=== PATIENT | male | born 1965 | race Hispanic/Latino ===

== ENCOUNTER 2018-12-23 13:43 | Emergency (ER) | payer SELFPAY ==
[2018-12-23] MEDS ORDERED: ASPIRIN PO ONE (14:06)
[2018-12-23 14:22] LABS: Basophils % (Auto) 0.8 % (0.0-1.8); Eosinophils # (Auto) 0.1 K/mm3 (0.0-0.4); Eosinophils % (Auto) 2.9 % (0.0-4.3); Hematocrit 41.2 % (35.5-45.6); Hemoglobin 14.3 gm/dl (11.8-15.2); Lymphocytes # (Auto) 1.3 K/mm3 (1.2-5.4); Lymphocytes % (Auto) 24.7 % (13.4-35.0); Mean Corpuscular HGB Conc 35 % (32-34); Mean Corpuscular Volume 98 fl (84-94); Monocytes # (Auto) 0.5 K/mm3 (0.0-0.8); Monocytes % (Auto) 9.6 % (0.0-7.3); Red Blood Count 4.22 M/mm3 (3.65-5.03); Red Cell Distribution Width 14.1 % (13.2-15.2)
[2018-12-23 14:27] LABS: Platelet Count 95 K/mm3 (140-440)
[2018-12-23 14:34] LABS: BUN/Creatinine Ratio 15; Blood Urea Nitrogen 12 mg/dL (9-20); Calcium 8.7 mg/dL (8.4-10.2); Hemolysis Index 218; INR 1.1 (0.87-1.13)
[2018-12-23 14:35] LABS: Partial Thromboplastin Time 25.8 Sec. (24.2-36.6)
--- NOTE | 2018-12-23 14:49 | XRay Report ---
AP CHEST: HISTORY: chest pain AP view of the chest demonstrates a normal mediastinal and cardiac contour with clear lungs and normal bony and soft tissue structures. IMPRESSION: Unremarkable AP chest.
--- NOTE | 2018-12-23 15:04 | Emergency Department Report ---
HPI - General Chief Complaint: Chest Pain Time Seen by Provider: 12/23/18 14:48 - HPI HPI: Room 26 The patient is a 53-year-old male presenting with chief complaint chest pain. The patient states when he awakened this morning he has discomfort in his chest. Patient describes a chest pain as pressure like and intermittent in nature. Patient states she is uncertain if he became short of breath with the pain but admits to nausea and vomiting. Patient also admits to methamphetamine use. The patient was brought in police custody and was tazed after running from police. Patient also complains of neck pain after arrest Location: [See above] Duration: [See above] Quality: [See above] Severity: [See above] Modifying factors: [see above] Context: [see above] Mode of transportation: [not driving] ED Past Medical Hx - Past Medical History Previous Medical History?: No Hx Heart Attack/AMI: Yes Additional medical history: Coronary artery disease - Surgical History Past Surgical History?: No - Family History Family history: no significant - Social History Smoking Status: Current Every Day Smoker Substance Use Type: Alcohol (occasional), Methamphetamines, Other - Medications Home Medications: Home Medications Medication Instructions Recorded Confirmed Last Taken Type No Known Home Medications [No 12/23/18 12/23/18 Unknown History Reported Home Medications] ED Review of Systems ROS: Stated complaint: AMS Other details as noted in HPI Constitutional: no symptoms reported Eyes: denies: eye pain ENT: denies: throat pain Respiratory: no symptoms reported Cardiovascular: chest pain Endocrine: no symptoms reported Gastrointestinal: nausea, vomiting Genitourinary: denies: dysuria Musculoskeletal: arthralgia (neck pain) Neurological: denies: headache Physical Exam - Physical Exam Vital Signs: Vital Signs 12/23/18 12/23/18 14:05 14:45 Temperature 97.9 F Pulse Rate 92 H 84 Respiratory 20 18 Rate Blood Pressure 142/76 120/82 [Right] O2 Sat by Pulse 99 98 Oximetry Physical Exam: GENERAL: The patient is well-developed male lying on stretcher is in poor hygiene not appearing to be in acute distress HEENT: Normocephalic. Atraumatic. Extraocular motions are intact. Patient has moist mucous membranes. NECK: Supple. Trachea midline CHEST/LUNGS: Clear to auscultation. There is no respiratory distress noted. HEART/CARDIOVASCULAR: Regular. There is no tachycardia. There is no gallop rub or murmur. ABDOMEN: Abdomen is soft, but diffusely tender to palpation. Patient has normal bowel sounds. There is no abdominal distention. SKIN: There are multiple superficial abrasions over the extremities. There is no edema. There is no diaphoresis. NEURO: The patient is asleep but awakens and answers questions appropriately. The patient is cooperative. The patient has no focal neurologic deficits. The patient has normal speech MUSCULOSKELETAL: There is no limitation range of motion. ED Course Vital Signs 12/23/18 12/23/18 14:05 14:45 Temperature 97.9 F Pulse Rate 92 H 84 Respiratory 20 18 Rate Blood Pressure 142/76 120/82 [Right] O2 Sat by Pulse 99 98 Oximetry ED Medical Decision Making - Lab Data Result diagrams: 12/23/18 14:12 12/23/18 14:12 - EKG Data -: EKG Interpreted by Me EKG shows normal: sinus rhythm Rate: normal - EKG Data When compared to previous EKG there are: previous EKG unavailable Interpretation: other (no ischemic changes seen) - Radiology Data Radiology results: report reviewed (chest x-ray, CT cervical spine, CT abdomen and pelvis), image reviewed (chest x-ray, CT cervical spine, CT abdomen and pelvis) interpreted by me: Chest x-ray-no focal infiltrates, no pneumothorax [facility] [address] [place] [address] XRay Report Signed Patient: REINALDO HATHAWAY MR#: [id number] : 1965 Acct:[id number] Age/Sex: 53 / M ADM Date: 12/23/18 Loc: ED Attending Dr: Ordering Physician: MATTI DUQUE MD Date of Service: 12/23/18 Procedure(s): XR chest 1V ap Accession Number(s): [id number] cc: MATTI DUQUE MD Fluoro Time In Minutes: AP CHEST: HISTORY: chest pain AP view of the chest demonstrates a normal mediastinal and cardiac contour with clear lungs and normal bony and soft tissue structures. IMPRESSION: Unremarkable AP chest. Transcribed By: TTR Dictated By: MAUDE WARD JR, MD Electronically A uthenticated By: MAUDE WARD JR, MD Signed Date/Time: 12/23/18 4184 DD/ 1444 TD/TT: 12/23/[address] [address] Cat Scan Report Signed Patient: REINALDO HATHAWAY MR#: [id number] : 1965 Acct:[id number] Age/Sex: 53 / M ADM Date: 12/23/18 Loc: ED Attending Dr: Ordering Physician: MATTI DUQUE MD Date of Service: 12/23/18 Procedure(s): CT cervical spine wo con Accession Number(s): [id number] cc: MATTI DUQUE MD PROCEDURE: CT CERVICAL SPINE WO CON TECHNIQUE: Computerized tomography of the cervical spine was performed from the skull base to T1 without contrast material. CT DOSE LENGTH PRODUCT: 765.8 mGycm HISTORY: diffuse tenderness after being taken into custody COMPARISONS: None . FINDINGS: Unenhanced CT of the cervical spine was performed and data was reformatted in the sagittal and coronal planes. These images demonstrate no fracture or malalignment of the cerv ical spine. The prevertebral soft tissues are within normal limits. There are degenerative changes at the C1-C2 articulation. There is right-sided facet hypertrophy at C3-C4 resulting in moderate right foraminal narrowing and suspected mild impingement of the exiting right C3 nerve root. There is loss of intervertebral disc space height and endplate remodeling at C6-C7. The prevertebral soft tissues are within normal limits. There is atherosclerosis of the cervical arterial vasculature. IMPRESSION: No fracture is seen in the cervical spine This document is electronically signed by Clint Bolaños MD., Dec 23 2018 04:11:24 PM ET Transcribed By: MATY Dictated By: CLINT BOLAÑOS MD Electronically Authenticated By: CLINT BOLAÑOS MD Signed Date/Time: 12/23/18 1613 DD/ 1533 TD/TT: 12/23/[address] [address] Cat Scan Report Signed Patient: REINALDO HATHAWAY MR#: [id number] : 1965 Acct:[id number] Age/Sex: 53 / M ADM Date: 12/23/18 Loc: ED Attending Dr: Ordering Physician: MATTI DUQUE MD Date of Service: 12/23/18 Procedure(s): CT abdomen pelvis w con Accession Number(s): [id number] cc: MATTI DUQUE MD PROCEDURE: CT ABDOMEN PELVIS W CON TECHNIQUE: Computerized axial tomography of the abdomen and pelvis was performed after the IV injection of iodinated nonionic contrast. CT DOSE LENGTH PRODUCT: 2829.9 mGycm HISTORY: diffuse tenderness after being taken into custody COMPARISONS: None . FINDINGS: Contrast-enhanced CT of the abdomen and pelvis was performed following the intravenous administration of iodinated contrast. There is coronary artery calcification. The lung bases appear clear. The visualized lower ribs are intact. ABDOMEN: There is a nodular contour of the liver consistent with cirrhotic change. The spleen measures 14.0 x 5.6 cm and is therefore mildly large. There are gallstones. No evidence of cholecystitis is seen. There are splenic hilar varices consistent with portal hypertension. No focal pancreatic lesion is seen. The adrenal glands are within normal limits. There is a 0.4 cm left nonobstructing renal calculus. No ureteral calculus or hydronephrosis is identified. There is no hemoperitoneum. Pelvis: The appendix is not seen. There is no evidence of appendicitis. There is no evidence of diverticulitis. The prostate and urinary bladder are within normal limits. There is a small posterior disc bulge at L5-S1 which does not result in canal stenosis or nerve root impingement. No fracture is seen in the lumbar spine. The bony pelvis and hips appear intact IMPRESSION: ABDOMEN: Cirrhosis and splenomegaly Gallstones Pelvis: No evidence of diverticulitis This document is electronically signed by Clint Bolaños MD., Dec 23 2018 04:04:34 PM ET Transcribed By: MATY Dictated By: CLINT BOLAÑOS MD Electronically Authenticated By: CLINT BOLAÑOS MD Signed Date/Time: 12/23/18 1606 DD/ 0000 TD/TT: 12/23/18 0000 - Differential Diagnosis ACS, pericarditis, rhabdomyolysis, cervical strain, liver laceration Critical care attestation.: If time is entered above; I have spent that time in minutes in the direct care of this critically ill patient, excluding procedure time. ED Disposition Clinical Impression: Chest pain, Cervical strain Disposition: OP ADMIT IP TO THIS HOSP Is pt being admited?: Yes Does the pt Need Aspirin: Yes Condition: Fair Instructions: Chest Pain (ED) Referrals: WILMAN FREITAS MD [Primary Care Provider] - 3-5 Days Time of Disposition: 16:40 (Hospitalist notified (Dr Hicks))
--- NOTE | 2018-12-23 16:06 | Cat Scan Report ---
PROCEDURE: CT ABDOMEN PELVIS W CON TECHNIQUE: Computerized axial tomography of the abdomen and pelvis was performed after the IV inject ion of iodinated nonionic contrast. CT DOSE LENGTH PRODUCT: 2829.9 mGycm HISTORY: diffuse tenderness after being taken into custody COMPARISONS: None . FINDINGS: Contrast-enhanced CT of the abdomen and pelvis was performed following the intravenous admi nistration of iodinated contrast. There is coronary artery calcification. The lung bases appear clear. The visualized lower ribs are in tact. ABDOMEN: There is a nodular contour of the liver consistent with cirrhotic change. The spleen measures 14.0 x 5.6 cm and is therefore mildly large. There are gallstones. No evidence of cholecystitis is seen. There are splenic hilar varices consistent with portal hypertension. No focal pancreatic lesion is seen. The adrenal glands are within normal limits. There is a 0.4 cm left nonobstructing renal calculus. No ureteral calculus or hydronephrosis is ident ified. There is no hemoperitoneum. Pelvis: The appendix is not seen. There is no evidence of appendicitis. There is no evidence of diverticuliti s. The prostate and urinary bladder are within normal limits. There is a small posterior disc bulge at L5-S1 which does not result in canal stenosis or nerve root impingement. No fracture is seen in the lumbar spine. The bony pelvis and hips appear intact IMPRESSION: ABDOMEN: Cirrhosis and splenomegaly Gallstones Pelvis: No evidence of diverticulitis This document is electronically signed by Clint Bolaños MD., Dec 23 2018 04:04:34 PM ET
[2018-12-23 16:10] VITALS: BP 171/90
--- NOTE | 2018-12-23 16:13 | Cat Scan Report ---
PROCEDURE: CT CERVICAL SPINE WO CON TECHNIQUE: Computerized tomography of the cervical spine was performed from the skull base to T1 wit hout contrast material. CT DOSE LENGTH PRODUCT: 765.8 mGycm HISTORY: diffuse tenderness after being taken into custody COMPARISONS: None . FINDINGS: Unenhanced CT of the cervical spine was performed and data was reformatted in the sagittal and coronal planes. These images demonstrate no fracture or malalignment of the cervical spine. The prevertebral soft tis sues are within normal limits. There are degenerative changes at the C1-C2 articulation. There is right-sided facet hypertrophy at C 3-C4 resulting in moderate right foraminal narrowing and suspected mild impingement of the exiting ri ght C3 nerve root. There is loss of intervertebral disc space height and endplate remodeling at C6-C7. The prevertebral soft tissues are within normal limits. There is atherosclerosis of the cervical arterial vasculature. IMPRESSION: No fracture is seen in the cervical spine This document is electronically signed by Clint Bolaños MD., Dec 23 2018 04:11:24 PM ET
[2018-12-23] MEDS ORDERED: NITRO-BID 2% TP ONE (16:22)
--- NOTE | 2018-12-23 16:54 | Event Note ---
Date: 12/23/18 Chest pain after being Tased sleeping In no pain Dx musculo skeletal pain-Chest D/c to Detention
== END 2018-12-23 17:24 | disposition home or self-care (01) ==
LOC: EDBD 13:43 → ED 13:43
DX: S16.1XXA Strain of muscle, fascia and tendon at neck level, initial encounter (principal); R07.9 Chest pain, unspecified; I25.2 Old myocardial infarction; I25.10 Atherosclerotic heart disease of native coronary artery without angina pectoris; X58.XXXA Exposure to other specified factors, initial encounter; Y93.89 Activity, other specified; Y92.89 Other specified places as the place of occurrence of the external cause; Y99.8 Other external cause status; R10.819 Abdominal tenderness, unspecified site
CPT/HCPCS: 36415; 71045; 72125; 74177; 80048; 82550; 84484; 85025; 85610; 85730; 93005; 93010; 99285; Q9967